=== PATIENT | male | born 1960 | race Caucasian/White ===

== ENCOUNTER 2022-03-23 09:37 | Emergency (ER) | payer OTHER ==
[~2022-03-23] VITALS: Ht 172.7 cm; Wt 81.2 kg
[2022-03-23 09:57] VITALS: BP_SYST 159
[2022-03-23] MEDS ORDERED: ALBMDI INH (11:11)
[2022-03-23] MEDS ORDERED: PRED20TA PO (11:11)
[2022-03-23 11:24] VITALS: BP_SYST 159
== END 2022-03-23 11:18 | disposition home or self-care (01) ==
LOC: SED 09:37
DX: J40 Bronchitis, not specified as acute or chronic (principal); R05.9 Cough, unspecified; R09.81 Nasal congestion; Z20.822 Contact with and (suspected) exposure to COVID-19
CPT/HCPCS: 36415; 71045; 99284